=== PATIENT | female | born 1960 ===

== ENCOUNTER 2021-09-14 09:15 | Outpatient (RCR) | payer OTHER, SELFPAY ==
--- NOTE | 2021-08-30 13:27 | PC.ADMIT ---
Patient referred to PHP by her potential therapist d/t increased depression, severe anxiety, and OCD sxs. Patient reports issues with concentration and memory r/t depression and anxiety. Patient reports struggling with fears of leaving the house related to the pandemic. Patient is taking a leave of absence from work to work on her mental health. She denied SI. Reports many health issues including cardiac issues ( see medical history) thus is being monitored by a warp spinner Q 3 months. In addition, she reports her PCP is monitoring her for low potassium levels and is taking potassium supplements as a result. Lab work is being monitored weekly by her PCP. Flavia Barrera NP is aware. Denied any substance issues. Patient is alert and oriented x4. Calm and cooperative. Denied SI. Medications reconciled with patient and patient's pharmacy. Patient reports taking medications as prescribed. Last filled Citalopram for one month supply on 07/19/21. Flavia Barrera NP PHP prescriber aware.
--- NOTE | 2021-08-30 15:09 | PC.NURSE ---
case opened in treatment team
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
--- NOTE | 2021-08-31 15:40 | PC.NURSE ---
I called and left a message with Sunni FARRAR informing her about the clients progress in the program
--- NOTE | 2021-09-06 11:41 | HO.PHPPROGNO ---
Subjective Subjective Date of Service: 09/06/21 Reason For Visit: depression,anxiety,OCD Guardianship: No Medical Problems Affecting Mental Status: No Interim History: Describes mood as good . Continues with some anxiety. Tried hydroxyzine, did not like it, made her too tired. Denies any SI/thoughts of self harm in any way, no safety concern. Medication Compliance: Yes Side effects from medications: Yes (Tried hydroxyzine, reports made her too tired.) Attending Groups: Yes Review of Systems Acute medical concerns: No Medical Review of Systems: unchanged Review of Systems Review of Systems Yes all other systems are reviewed and are negative Constitutional: Reports no additional constitutional complaints Mental Status Exam Mental Status Exam Narrative: NAD. Fully cooperative and conversant during encounter. Patient Appearance: Well Grooomed and Appropriate Patient Orientation: Person, Place, Time and Situation Level of Consciousness: Awake, Appropriate and Alert Patient Behavior: Appropriate, Cooperative and Good Eye Contact Mood Description: Anxious Affect Description: Depressed and Anxious Patient Cognition Impaired: No Ability to Follow Directions: Good Speech Pattern: Clear, Difficulty Finding Words (Slow to respond, states this is due to cognitive slowing from low O2. ), Coherent and Soft-Spoken Memory Description: Intact Hallucinations: None Delusions: Not Present Perceptual Disturbances: Depersonalization Thought Process: Intact Thought Content: positive for Intact and positive for Obsessional Thoughts Depressive Symptoms: Increased Anxiety, Loss of Int. in Activity, Feelings of Worthlessness, Hopelessness, Feelings of Guilt, Increased Fatigue and Difficulty Concentrating Judgement: Fair Assessment & Plan Assessment & Plan (1) Major depressive disorder, recurrent, moderate: Status: Acute Code(s): F33.1 - Major depressive disorder, recurrent, moderate Assessment and Plan: Describes mood today as ?good ?. Denies any SI, no safety concern. She reports citalopram is not really helping sufficiently at this time, but she has only had increased dose for past 2 weeks, will give it another week or so before considering any medication changes. most troubling symptom currently is anxiety. Reports she is also sleeping a lot. Frustrated with her cognitive-inter separation with words, describes as her works not flowing out as easily some days. She states that she knows what she wants to say, but becomes aphasic at times, and cannot get the words out. We discussed using a pulse oximeter, as she has 1 at home, along with blood pressure cuff. She regularly checks her blood pressure, as it can fluctuate. I did suggest that she begin tracking her O2 levels at the same time, and keeping it in an open book. She has had difficulty maintaining O2 levels at times. She also reports that she is going to have a sleep study, as she does have sleep apnea, and is currently not wearing a CPAP. We discussed how this could also be adding to some of the symptoms she is describing. She reports overall she is finding the [facility] program helpful, and says she is approaching the issues she needs to work on during groups. She describes it as a safe, supportive environment. (2) Generalized anxiety disorder: Status: Acute Code(s): F41.1 - Generalized anxiety disorder Assessment and Plan: Patient reports she trialed hydroxyzine, did not like side effect of feeling too sedated. We discussed a trial of BuSpar, as she has tried it in the past with good effect. She is willing to try it again at this time. (3) Mixed obsessional thoughts and acts: Status: Acute Code(s): F42.2 - Mixed obsessional thoughts and acts Assessment and Plan: Patient did not report any obsessional thoughts at this time, did not discuss as troubling at this time. Plan 1. Discontinue hydroxyzine. 2. Start BuSpar 10 mg t.i.d.. 3. Continue with current [facility] plan of care. 4. Follow-up as per protocol. Patient educated on: diagnosis, medication risk/benefits, therapeutic strategies and medical condition Informed Consent: understands Reason for contiued partial hosp. stay Substantial Risk for: inability to function and med/psych decompensation Certification I certify that partial hospital treatment is medically necessary due to the symptoms and problems resulting from the patient's mental illness and the failure to treat the patient at the partial hospital level of care would likely result in the patient requiring inpatient psychiatric care which could not be prevented at a less intensive level of care. I spent minutes with the patient and/or on the patient floor today, greater than?50% of which was spent counseling/coordinating care. Discharge Plan Discharge Attending provider: Eligio Rizvi Medications: New buspirone 10 mg tablet 10 mg PO TID 14 Days Qty: 42 0RF Discontinued hydroxyzine HCl 25 mg Tablet 25 mg PO TID PRN (Reason: Anxiety) 0RF Label Comments: New medication, patient has not started. No Action amlodipine 5 mg Tablet 7.5 mg PO DAILY 0RF atorvastatin 10 mg Tablet 10 mg PO DAILY 0RF chlorthalidone 25 mg Tablet 12.5 mg PO DAILY 0RF Rx Instructions: Take 1/2 tab daily topiramate 25 mg Tablet 75 mg PO DAILY 0RF Rx Instructions: Take 3 tabs daily. acetaminophen 650 mg Tablet 1,300 mg PO BID PRN (Reason: Pain) 0RF potassium chloride 20 mEq/15 mL Liquid 10 meq PO BID 0RF Rx Instructions: Take 7.5 ML BID citalopram 20 mg Tablet 40 mg PO DAILY 0RF Label Comments: Patient was taking 30 mg daily taking and reports her prescriber increased to 40 mg daily. Rx Instructions: Take 2 tabs daily. montelukast [Singulair] 10 mg Tablet 10 mg PO DAILY 0RF losartan 100 mg Tablet 100 mg PO DAILY 0RF Rx Instructions: Losartan Potassium omeprazole 20 mg Tablet,Delayed Release (Dr/Ec) 20 mg PO DAILY 0RF aspirin 81 mg Capsule 81 mg PO DAILY 0RF Telehealth Telehealth Location of provider rendering services: practice address Location of patient: address on file Patient Identification confirmed using: Name, : Yes Telehealth method: video Patient verbally consented to treatment: Yes Patient verbally consented to billing insurance company: Yes Patient informed of any privacy concerns related to visit: Yes Minutes spent on Phone/Video with Pt.: 20
--- NOTE | 2021-09-10 20:33 | HO.PHPPROGNO ---
Subjective Subjective Date of Service: 09/10/21 Reason For Visit: depression,anxiety,OCD Guardianship: No Medical Problems Affecting Mental Status: No Interim History: States I'm okay today . Denies any thoughts of harm to self or others, no SI/HI. No safety concerns. 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 Concerned about returning to work, may need reduced schedule or accomodations. Medication Compliance: Intermittent (has not yet started buspar that was ordered last week.) Side effects from medications: No Attending Groups: Yes Review of Systems Acute medical concerns: No Medical Review of Systems: unchanged Review of Systems Review of Systems Yes all other systems are reviewed and are negative Constitutional: Reports no additional constitutional complaints Mental Status Exam Mental Status Exam Narrative: NAD. Fully cooperative and participating during encounter. Patient Appearance: Well Grooomed and Appropriate Patient Orientation: Person, Place, Time and Situation Level of Consciousness: Awake, Appropriate and Alert Patient Behavior: Appropriate, Cooperative and Good Eye Contact Mood Description: Appropriate Affect Description: Depressed and Anxious Patient Cognition Impaired: No Ability to Follow Directions: Good Speech Pattern: Clear, Difficulty Finding Words (Slow to respond, states this is due to cognitive slowing from low O2. ), Coherent and Soft-Spoken Memory Description: Intact Hallucinations: None Delusions: Not Present Perceptual Disturbances: Depersonalization Thought Process: Intact Thought Content: positive for Intact Depressive Symptoms: Increased Anxiety, Loss of Int. in Activity, Increased Fatigue and Difficulty Concentrating Judgement: Fair Assessment & Plan Assessment & Plan (1) Major depressive disorder, recurrent, moderate: Status: Acute Code(s): F33.1 - Major depressive disorder, recurrent, moderate Assessment and Plan: Continues with anxious, depressed mood, reports it is improving. Has some concerns, as her son is going on vacation, and she cannot meet with her therapist until later in the month, due to a vacation. She says that they are her main supports. We discussed others in her network that she can contact for supports. No SI, no safety concern at this time. (2) Generalized anxiety disorder: Status: Acute Code(s): F41.1 - Generalized anxiety disorder Assessment and Plan: Has not gone to pharmacy to milk pickup driver buspar that was ordered last week. She plans to milk pickup driver medication and start it today. She continues with anxiety, although feels some improvement from groups. She was encouraged to start the medication, and try it. (3) Mixed obsessional thoughts and acts: Status: Acute Code(s): F42.2 - Mixed obsessional thoughts and acts Assessment and Plan: Patient says she is expected to return to work in one week. She is having some obsessive thoughts regarding this, as she is fearful that she is not ready to be able to keep up the pace physically, as well as complete the paperwork of the job in a timely manner. We discussed possibility of returning to work with accommodations, such as a reduced work schedule, or with more time for paperwork. She says she will reach out to her human resources person to discuss these options. Plan 1. Continue with current [facility] plan of care. 2. Start the buspar. 3. Follow-up as per protocol. Patient educated on: diagnosis, medication risk/benefits and therapeutic strategies Informed Consent: understands Reason for contiued partial hosp. stay Substantial Risk for: inability to function, rapid decompensation and med/psych decompensation Certification I certify that partial hospital treatment is medically necessary due to the symptoms and problems resulting from the patient's mental illness and the failure to treat the patient at the partial hospital level of care would likely result in the patient requiring inpatient psychiatric care which could not be prevented at a less intensive level of care. I spent minutes with the patient and/or on the patient floor today, greater than?50% of which was spent counseling/coordinating care. Discharge Plan Discharge Attending provider: Eligio Rizvi Medications: New buspirone 10 mg tablet 10 mg PO TID 14 Days Qty: 42 0RF Discontinued hydroxyzine HCl 25 mg Tablet 25 mg PO TID PRN (Reason: Anxiety) 0RF Label Comments: New medication, patient has not started. No Action amlodipine 5 mg Tablet 7.5 mg PO DAILY 0RF atorvastatin 10 mg Tablet 10 mg PO DAILY 0RF chlorthalidone 25 mg Tablet 12.5 mg PO DAILY 0RF Rx Instructions: Take 1/2 tab daily topiramate 25 mg Tablet 75 mg PO DAILY 0RF Rx Instructions: Take 3 tabs daily. acetaminophen 650 mg Tablet 1,300 mg PO BID PRN (Reason: Pain) 0RF potassium chloride 20 mEq/15 mL Liquid 10 meq PO BID 0RF Rx Instructions: Take 7.5 ML BID citalopram 20 mg Tablet 40 mg PO DAILY 0RF Label Comments: Patient was taking 30 mg daily taking and reports her prescriber increased to 40 mg daily. Rx Instructions: Take 2 tabs daily. montelukast [Singulair] 10 mg Tablet 10 mg PO DAILY 0RF losartan 100 mg Tablet 100 mg PO DAILY 0RF Rx Instructions: Losartan Potassium omeprazole 20 mg Tablet,Delayed Release (Dr/Ec) 20 mg PO DAILY 0RF aspirin 81 mg Capsule 81 mg PO DAILY 0RF Telehealth Telehealth Location of provider rendering services: practice address Location of patient: address on file Patient Identification confirmed using: Name, : Yes Telehealth method: video Patient verbally consented to treatment: Yes Patient verbally consented to billing insurance company: Yes Patient informed of any privacy concerns related to visit: Yes Minutes spent on Phone/Video with Pt.: 15
--- NOTE | 2021-09-13 12:28 | PC.NURSE ---
Patient reports she has an appointment on 09/13/21 at 1:[facility] with dx of sleep apnea and have her C-Pap machine adjusted so she can begin using it again. Patient also reports going to her mammogram appointment on 09/05/21. In addition, she has a fuel cell engineer f/u appointment on 10/26/21 as she is monitored by a fuel cell engineer every 3 months.
--- NOTE | 2021-09-13 16:21 | HO.PHPPROGNO ---
Subjective Subjective Date of Service: 09/13/21 Reason For Visit: depression,anxiety,OCD Guardianship: No Medical Problems Affecting Mental Status: No Interim History: Reports still struggling with obsessive thoughts, working to ?sit with the uncomfortable feeling rather than acting ?. Describes some anxiety, but states it is now lessened enough ?where I can deal with things ?. Believe she may need accommodations upon return to work next week, will send form to be filled out. No SI, no thought of harm to self or others, no safety concern. Medication Compliance: Yes Side effects from medications: No Attending Groups: Yes Review of Systems Acute medical concerns: No Medical Review of Systems: unchanged Review of Systems Review of Systems Yes all other systems are reviewed and are negative Constitutional: Reports no additional constitutional complaints Mental Status Exam Mental Status Exam Narrative: NAD. Patient Appearance: Well Grooomed and Appropriate Patient Orientation: Person, Place, Time and Situation Level of Consciousness: Awake, Appropriate and Alert Patient Behavior: Appropriate, Cooperative and Good Eye Contact Mood Description: Appropriate and Anxious (Reports some anxiety, although much improved.) Affect Description: Anxious and Flat Patient Cognition Impaired: No Ability to Follow Directions: Good Speech Pattern: Clear, Difficulty Finding Words (Slow to respond, states this is due to cognitive slowing from low O2. ), Coherent and Soft-Spoken Memory Description: Intact Hallucinations: None Delusions: Not Present Perceptual Disturbances: Depersonalization Thought Process: Intact Thought Content: positive for Intact Depressive Symptoms: Increased Fatigue and Difficulty Concentrating Judgement: Good Assessment & Plan Assessment & Plan (1) Major depressive disorder, recurrent, moderate: Status: Acute Code(s): F33.1 - Major depressive disorder, recurrent, moderate Assessment and Plan: Reports symptoms of depression have improved. Reports current medications appear to be working appropriately. Feels ready to discharge from [facility] tomorrow, and resume work next week. Is concerned about returning full-time. We discussed accommodations, including a transition back to work hours and in-person. She stated that this would be helpful. She has sent paperwork to be completed. Denies any thought of harm to self or others, no SI, no safety concern. (2) Generalized anxiety disorder: Status: Acute Code(s): F41.1 - Generalized anxiety disorder Assessment and Plan: Reports improvement in anxiety, although still present. Reports that the BuSpar appears to be helping, would like to continue with it. Continues with other medications as prescribed. (3) Mixed obsessional thoughts and acts: Status: Acute Code(s): F42.2 - Mixed obsessional thoughts and acts Assessment and Plan: Reports does continue with some obsessive thoughts, but is using skills, sitting with her thoughts and feelings, rather than act on them. Is awaiting return of her therapist, so that she can work further with her regarding this. Plan 1. Patient appears stable for discharge from [facility] tomorrow. Continue with current [facility] plan of care for now. 2. Accommodation paperwork to be completed and submitted. 3. Continue with BuSpar 10 mg t.i.d., 30 day prescription sent. Patient educated on: diagnosis, medication risk/benefits and therapeutic strategies Informed Consent: understands Reason for contiued partial hosp. stay Substantial Risk for: stable for discharge Certification I certify that partial hospital treatment is medically necessary due to the symptoms and problems resulting from the patient's mental illness and the failure to treat the patient at the partial hospital level of care would likely result in the patient requiring inpatient psychiatric care which could not be prevented at a less intensive level of care. I spent minutes with the patient and/or on the patient floor today, greater than?50% of which was spent counseling/coordinating care. Discharge Plan Discharge Attending provider: Eligio Rizvi Additional Instructions: Sunni Alexandra [facility] , Plan for PCP to make a referral for provider in the [facility] system Medications: New buspirone 10 mg tablet 10 mg PO TID 30 Days Qty: 90 0RF Discontinued hydroxyzine HCl 25 mg Tablet 25 mg PO TID PRN (Reason: Anxiety) 0RF Label Comments: New medication, patient has not started. No Action amlodipine 5 mg Tablet 7.5 mg PO DAILY 0RF atorvastatin 10 mg Tablet 10 mg PO DAILY 0RF chlorthalidone 25 mg Tablet 12.5 mg PO DAILY 0RF Rx Instructions: Take 1/2 tab daily topiramate 25 mg Tablet 75 mg PO DAILY 0RF Rx Instructions: Take 3 tabs daily. acetaminophen 650 mg Tablet 1,300 mg PO BID PRN (Reason: Pain) 0RF potassium chloride 20 mEq/15 mL Liquid 10 meq PO BID 0RF Rx Instructions: Take 7.5 ML BID citalopram 20 mg Tablet 40 mg PO DAILY 0RF Label Comments: Patient was taking 30 mg daily taking and reports her prescriber increased to 40 mg daily. Rx Instructions: Take 2 tabs daily. montelukast [Singulair] 10 mg Tablet 10 mg PO DAILY 0RF losartan 100 mg Tablet 100 mg PO DAILY 0RF Rx Instructions: Losartan Potassium omeprazole 20 mg Tablet,Delayed Release (Dr/Ec) 20 mg PO DAILY 0RF aspirin 81 mg Capsule 81 mg PO DAILY 0RF Stand Alone Forms: Patient Portal Discharge page Telehealth Telehealth Location of provider rendering services: practice address Location of patient: address on file Patient Identification confirmed using: Name, : Yes Telehealth method: video Patient verbally consented to treatment: Yes Patient verbally consented to billing insurance company: Yes Patient informed of any privacy concerns related to visit: Yes Minutes spent on Phone/Video with Pt.: 20
--- NOTE | 2021-09-14 12:43 | PC.NURSE ---
Patient discharging from the program today. Patient reported to me while at sleep study appointment yesterday her BP was 114/44 P 42. She checked her BP when she got home it was 117/66 P 68. Today BP 131/84 P 86. Stated she had a rough night last night reporting her coordination was off, double vision, and vertigo. Patient reports history of similar symptoms while at work and was dx with Subclavian occlusion. Stated symptoms have lessoned today. Patient called her PCP who suggested she go to the ER for evaluation. Patient wanted to call her friend to see if she could bring her. I advised her to go by ambulance however she wanted to see if her friend could take her first. Patient called me back and stated she could not get a hold of her friend. She asked me what should she do. I told her I could call an ambulance for her and she agreed. I called an ambulance for the patient. Gave the dispatcher patient's cardiac history and her history of TIA's and also reported the aforementioned symptoms. PHP team is aware.
--- NOTE | 2021-09-17 09:57 | PC.NURSE ---
iRna was discharged from [facility] last Friday on 09/14/21. Called Rina today to f/u regarding ER visit. Patient stated she was admitted on Friday and was discharged on Friday. Patient stated the doctors wanted her to stay in the hospital however she did not want to stay. She stated they wanted to do more testing including an MRI however patient stated she convinced the pulminologist, education instructor, and neurologist to let her go home with the condition that someone would stay with her and she would complete the MRI as an outpatient as patient stated she lives 10 [place] away from where she could obtain an MRI. She stated her 21 year old niece is staying with her presently. Talked to patient regarding appointments and patient is going to call her PCP after our phone conversation to make a f/u appointment and is going to call to f/u regarding MRI appointment. I advised patient to call an ambulance if she experiences similar symptoms she reported to me last Friday. Stated she was diagnosed with Bradycardia, chest pain, and Hypokalemia. Educated patient on the importance of taking prescribed potassium supplements as prescribed.
--- NOTE | 2021-09-17 10:13 | PC.NURSE ---
Reviewed patient discharge medications with patient. Patient reports no changes.
== END 2021-09-16 23:59 | disposition home or self-care (01) ==
LOC: HO.PHPA 09:15
PROVIDERS: Visit Provider Psychiatry & Neurology Psychiatry
DX: F33.1 Major depressive disorder, recurrent, moderate (principal); F41.1 Generalized anxiety disorder; F42.2 Mixed obsessional thoughts and acts; Z79.899 Other long term (current) drug therapy
CPT/HCPCS: 90791; 90853